=== PATIENT | female | born 2000 | race Caucasian/White ===

== ENCOUNTER 2021-10-15 23:54 | Emergency (ER) | payer MEDICAID ==
[~2021-10-15] VITALS: Ht 167.6 cm; Wt 84.1 kg
[~2021-10-15 23:54] MED LIST: LEVOXYL0.2 MG PO; SLOW FE142 MG PO; SYNTHROID0.1 MG PO
[2021-10-16 00:06] VITALS: BP 132/79
== END 2021-10-16 01:05 | disposition home or self-care (01) ==
LOC: ED 23:54
DX: N93.9 Abnormal uterine and vaginal bleeding, unspecified (principal); F17.210 Nicotine dependence, cigarettes, uncomplicated; Z98.890 Other specified postprocedural states

== ENCOUNTER 2023-02-23 21:41 | Emergency (ER) | payer MEDICAID ==
[~2023-02-23] VITALS: Ht 165.1 cm; Wt 79.5 kg
[2023-02-23] MEDS ORDERED: LEVOTHYROXIN0.137 MG PO (21:56)
[2023-02-23 22:31] LABS: BASO # 0.01 K/mm3 (0.02-0.10); EOS # 0.18 K/mm3 (0.04-0.40); EOS % 2.2 % (1.0-5.0); HEMATOCRIT 31.1 % (37.0-47.0); HEMOGLOBIN 10.2 g/dL (12.5-16.0); LYMPH# 2.28 K/mm3 (1.50-4.00); MEAN CELL VOLUME 91 fl (78-100); MEAN CORPUSCULAR HEMOGLOBIN 30 pg (27-31); MEAN CORPUSCULAR HGB CONC 33 g/dL (33-37); MEAN PLATELET VOLUME 10.8 fl (7.4-10.4); MONO # 0.51 K/mm3 (0.20-0.80); NEU # 5.03 K/mm3 (1.40-6.50); PLATELET COUNT 226 K/mm3 (130-400); RED BLOOD COUNT 3.43 M/mm3 (4.10-5.30); RED CELL DISTRIBUTION WIDTH 13.7 % (11.5-14.5)
[2023-02-24 00:59] VITALS: BP 115/78
== END 2023-02-24 00:10 | disposition home or self-care (01) ==
LOC: ED 21:41
PROVIDERS: Family Medicine
DX: N93.9 Abnormal uterine and vaginal bleeding, unspecified (principal); Z87.59 Personal history of other complications of pregnancy, childbirth and the puerperium; Z98.890 Other specified postprocedural states; Z28.310 Unvaccinated for COVID-19

== ENCOUNTER 2024-09-27 15:54 | Emergency (ER) | payer MEDICAID ==
[~2024-09-27] VITALS: Ht 167.6 cm; Wt 81.1 kg
[~2024-09-27 15:54] MED LIST changes: +LEVOTHYROXIN0.137 MG PO
[2024-09-27] MEDS ORDERED: ESTARYLLA 35 MC1 TAB PO (16:19)
[2024-09-27 17:04] VITALS: BP 121/87
== END 2024-09-27 17:07 | disposition home or self-care (01) ==
LOC: ED 15:54
DX: S90.32XA Contusion of left foot, initial encounter (principal); W19.XXXA Unspecified fall, initial encounter